=== PATIENT | male | born 1945 ===

== ENCOUNTER 2025-05-01 06:26 | Day surgery (SDC) | payer OTHER, BC ==
[2025-05-01] MEDS ORDERED: ACETAMINOPHEN 500 MG TABLET (FP) PO PRN (09:02)
[2025-05-01 10:35] VITALS: RESP 18; TEMP 98; BMI 38.0
[2025-05-01] MEDS: LIDOCAINE HCL 1% PRESERVATIVE FREE - 30ML VIAL IJ ONE (11:46)
[2025-05-01] MEDS: DEXAMETHASONE SOD PHOSPHATE 10 MG/1 ML VIAL IVPUSH ONE (11:48)
[2025-05-01] MEDS: IOHEXOL 180 MG/1 ML ML IT ONE (11:48)
[2025-05-01 12:09] VITALS: BP 113/62; PULSE 65
== END 2025-05-01 12:17 | disposition home or self-care (01) ==
LOC: JASU-SURG 06:26
PROVIDERS: ATTEND Pain Medicine Pain Medicine
PROC: 3E0R3BZ Introduction of Anesthetic Agent into Spinal Canal, Percutaneous Approach (ICD-10-PCS; 2025-05-01)
PROC: 3E0R33Z Introduction of Anti-inflammatory into Spinal Canal, Percutaneous Approach (ICD-10-PCS; principal; 2025-05-01 11:45)
DX: M48.061 Spinal stenosis, lumbar region without neurogenic claudication (principal); M54.16 Radiculopathy, lumbar region
CPT/HCPCS: 76000-TC-FY; J1100